=== PATIENT | female | born 1990 ===

== ENCOUNTER 2016-10-19 15:50 | Inpatient (IN) ==
[2016-10-19] MEDS ORDERED: ONDANSETRON 4 MG/2 ML VIAL IV PRN ×2 (16:34→22:53)
[2016-10-19] MEDS ORDERED: LACTATED RINGERS 1,000 ML IV PRN (16:34)
[2016-10-19] MEDS ORDERED: AMPICILLIN INJ 2,000 MG in SODIUM CHLORIDE 0.9% 100 ML IV ONE (16:44)
[2016-10-19] MEDS ORDERED: ePHEDrine 50 MG/ML AMP IV PRN (16:52)
[2016-10-19] MEDS ORDERED: FAMOTIDINE 20 MG/2 ML VIAL IV PRN (16:52)
[2016-10-19] MEDS ORDERED: PROMETHAZINE 25 MG/1 ML VIAL IM ONE (16:52)
[2016-10-19] MEDS ORDERED: diphenhydrAMINE 50 MG/1 ML VIAL IV PRN (16:52)
[2016-10-19] MEDS ORDERED: CITRIC ACID/SODIUM CITRATE 30 ML UDCUP PO PRN (16:52)
[2016-10-19 16:53] LABS: Basophils % 0.3 % (0.0-0.8); Eosinophils % 0.6 % (0.00-10.9); Hematocrit 32.5 VOL% (35.7-47.0); Hemoglobin 10.8 GM/DL (12.0-16.0); Immature Granulocytes % 0.9 %; Immature Granulocytes Absolute 0.06 #; Lymphocytes # 1.1 10*3/uL (1.4-4.0); Lymphocytes % 16.5 % (21.3-54.2); Mean Corpuscular HGB Conc 33.2 GM/DL (32-36); Mean Corpuscular Hemoglobin 28 PG (27-34); Mean Corpuscular Volume 84.6 FL (87-102); Monocytes # 0.4 10*3/uL (0.11-0.8); Monocytes % 5.5 % (1.7-12.7); Neutrophils % 76.2 % (38.7-73.9); Platelet Count 222 T/CUMM (130-400); Red Blood Count 3.84 MC/CUMM (3.8-5.5); Red Cell Distribution Width 15.1 % (9.3-17.3); White Blood Count 6.5 T/CUMM (4-12)
[2016-10-19] MEDS ORDERED: OXYTOCIN/LR 20 UNIT/1,000 ML BAG IV SCH (17:00)
[2016-10-19] MEDS ORDERED: LACTATED RINGERS 1,000 ML IV SCH (17:00)
[2016-10-19] MEDS ORDERED: fentaNYL 2 MCG/ROPIV 0.2% EPID 150 ML EPIDURAL ONE (17:14)
[2016-10-19 17:19] LABS: Albumin 2.8 G/DL (3.4-5.0); Bilirubin,Total 1.1 MG/DL (0.2-1.0); Calcium 8.7 MG/DL (8.5-10.1); Osmolality,Calculated 274.7 MOS/KG (273-304); Uric Acid 3.8 MG/DL (2.6-6.0)
[2016-10-19] MEDS ORDERED: fentaNYL 2 MCG/ROPIV 0.2% EPID 150 ML EPIDURAL SCH (18:24)
[2016-10-19 19:32] LABS: HIV Antigen/Antibody Result Nonreactive (Nonreactive); Hepatitis B Surface Ag Quant < 0.10 Index; Hepatitis B Surface Ag Result Negative (Negative); Rubella Antibody IgG 18.7 IU/ML
--- NOTE | 2016-10-19 20:03 | OB/GYN History & Physical ---
History of Present Illness Chief complaint: The patient presented to the office for routine exam. She was in labor. History of present illness: Ms. Valdes is a 25 year old female presented to the office for routine exam. Upon examination she was found to be 6 cm dilated and was sent to the labor department for evaluation. Her GENARO is 11/02/2016 for an estimated gestational age of 38 weeks. The patient will be admitted for augmentation of labor. The risk and benefits of been thoroughly discussed with this patient and significant other, plan of care has been discussed with Dr. Haq and all parties are in agreement plan. The patient received her care through the [facility] in the [facility] and she received routine care and her course was uneventful. labs: Unavailable at time of dictation. The patient has had 3 previous vaginal deliveries and the largest infant weighed 8 pounds and 6 ounces and she reported no complications with any of her pregnancies. Home Medications Medication Instructions Recorded Confirmed Type Multivitamin () [ 1 tablet PO DAILY 11/07/15 10/19/16 History Vitamin] Allergies Allergy/AdvReac Type Severity Reaction Status Date / Time No Known Allergies Allergy Verified 08/04/14 22:24 12 point system: reviewed and no additional remarkable complaints except as stated Medical,Surgical,& Family Hx - Medical History Medical History: noncontributory Reproductive: History of: Sexually Transmitted Disorders (hx of chlamydia and trichamonis in jan 2014) No history of: Ectopic , Complication - Surgical History Abdominal Surgeries: Patient denies: Abdominal Surgery Reproductive Surgeries: Patient denies;: Section - Family History Family History: Reports;: Family Diabetes (paternal GM), Family Hypertension ( paternal GM), Family Stroke (paternal GM) Denies;: Family Anesthesia Reaction, Family Cancer, Family Heart Disease, Family Psychiatric Problems - Social History Smoking Status: Current every day smoker Marital Status: Single Lives With:: Significant Other Exam SPANISH TUTOR - Constitutional Vitals: Vital Signs Temp Pulse Resp BP 10/19/16 16:36 96.3 F L 82 20 123/66 General appearance: mild distress - Antepartum / Post Antepartum Exam Cervix - Dilatation: 7 CM Effacement: 80% Station: -1 Rupture: Intact Presentation: Vertex Heart Rate: 130s Breast: bilateral: normal Abdomen obstetrics: Present: bowel sounds normal Vagina: Present: normal moisture Uterus exam: Present: enlarged - Respiratory Respiratory exam: Present: clear to auscultation bilaterally - Cardiovascular Cardiovascular exam: Present: regular rate and rhythm - GI/Abdominal GI/Abdominal exam: Present: normal bowel sounds, soft - Extremities Exam Extremities exam: Present: normal inspection - Neurological Exam Neurological exam: Present: alert, oriented X3 - Psychiatric Psychiatric exam: Present: normal affect, normal mood - Skin Skin exam: Present: normal color, warm Assessment and Plan (1) 38 weeks gestation of Status: Acute Assessment and plan: Admit IV fluids IV Pitocin per protocol Artificial rupture membranes when appropriate Internal monitors if indicated Epidural anesthesia if desired Anticipate Current Visit: Yes (2) Active labor Status: Acute Assessment and plan: Same as above. Current Visit: Yes Results - Labs CBC & BMP: 10/19/16 16:42 10/19/16 16:42 Quality Measures - VTE Contraindication to Pharmacological VTE Prophylaxis: High Risk of Bleeding
--- NOTE | 2016-10-19 20:20 | Event Note ---
HPI: Ms. Valdes presented to the labor department in active labor. In light of these findings patient was admitted for management of her labor. The risk and benefits were thoroughly discussed this patient significant other, plan of care was discussed with Dr. Haq and all parties were in agreement plan. Stage I: The patient was admitted she received IV fluids and IV Pitocin per protocol. Artificial rupture membranes was performed with clear fluid noted. The patient progressed in labor with a CAT 1 tracing. She received an epidural for pain control. She had an uneventful course of labor. Stage II: The patient was complete and was instructed to push. She pushed for approximately 5 minutes after which time the 's head was delivered. Mouth and nose were suctioned on perineum. The remainder the infant was delivered at 1951 a viable female infant was noted. Apgars were 9 at 1 minute and 9 at 5 minutes. weight was 7 pounds and 12 ounces. A cord pH was obtained and sent to the lab. The was placed on the mom's abdomen for skin to skin bonding. Stage III: A spontaneous delivery of a Humphrey placenta with three-vessel cord noted. The placenta was further examined. Grossly intact. The vagina cervix was inspected with no tears or lacerations noted. Estimated blood loss is approximately 150 cc. At the time of dictation mother and baby are both in stable condition.
[2016-10-19] MEDS ORDERED: ACETAMINOPHEN/CODEINE 300-30 MG TABLET PO PRN (20:22)
[2016-10-19 20:40] LABS: Apearance,Urine CLEAR (Clear); Bacteria,Urine Occasional /HPF (Few); Bilirubin,Urine Negative (Negative); Blood, Urine Negative (Negative); Glucose,Urine (UA) Negative (Negative); Ketones,Urine 5 mg/dL (Negative); Mucus,Urine Occasional /LPF (Occasional); Nitrite,Urine Negative (Negative); Protein,Urine Negative; RBC,Urine 14 /HPF (0-4); Renal Epithelial Cells,Urine Occasional /HPF (<1); Squamous Epithelial Cell,Urine Occasional /HPF (0-10); Urine Color Yellow (Yellow); Urine Specific Gravity 1.021 (1.001-1.035); WBC,Urine 1 /HPF (0-6)
[2016-10-19] MEDS ORDERED: CARBOPROST TROMETHAMINE 250 MCG/ML AMP IM ONE (21:54)
[2016-10-19] MEDS ORDERED: BISACODYL 10 MG SUPP RECTAL PRN (22:51)
[2016-10-19] MEDS ORDERED: ACETAMINOPHEN 325 MG TABLET PO PRN (22:51)
[2016-10-19] MEDS ORDERED: LANOLIN 50% CREAM 0.3 OZ TUBE TOP PRN (22:51)
[2016-10-19] MEDS ORDERED: BENZOCAINE 20%/MENTHOL 0.5% SPRAY 56 GM CAN TOP PRN (22:51)
[2016-10-19] MEDS ORDERED: RHO(D) IMMUNE GLOBULIN 300 MCG SYRINGE IM ONE (22:51)
[2016-10-19] MEDS ORDERED: WITCH HAZEL PADS 100/JAR TOP PRN (22:51)
[2016-10-19] MEDS ORDERED: MEASLES/MUMPS/RUBELLA VACCINE 0.5 ML VIAL SUBCUT ONE (22:51)
[2016-10-19] MEDS ORDERED: IBUPROFEN 800 MG TABLET PO PRN (22:51)
[2016-10-19] MEDS ORDERED: DIPH/TET/ACEL PERT BOOSTER VACCINE 0.5 ML VIAL IM ONE (22:51)
[2016-10-19] MEDS ORDERED: HYDROCORTISONE 2.5% RECTAL CREAM 30 GM TUBE TOP PRN (22:51)
[2016-10-19] MEDS ORDERED: oxyCODONE/ACETAMINOPHEN 5-325 MG TABLET PO PRN ×2 (22:51)
[2016-10-19] MEDS ORDERED: ONDANSETRON 4 MG/2 ML VIAL ONE (22:54)
[2016-10-19] MEDS: DOCUSATE SODIUM 100 MG CAPSULE PO SCH (23:04)
[2016-10-19] MEDS ORDERED: OXYTOCIN/LR 20 UNIT/1,000 ML BAG IV ONE (23:33)
[2016-10-20] MEDS ORDERED: MEPERIDINE 25 MG/1 ML VIAL IV PRN (00:26)
[2016-10-20] MEDS ORDERED: PROMETHAZINE 25 MG/1 ML VIAL IM PRN (00:26)
[2016-10-20] MEDS ORDERED: MEPERIDINE 25 MG/1 ML VIAL ONE (00:28)
[2016-10-20] MEDS ORDERED: PROMETHAZINE 25 MG/1 ML VIAL ONE (00:29)
[2016-10-20 05:58] LABS: Basophils % 0.1 % (0.0-0.8); Hemoglobin 9.6 GM/DL (12.0-16.0); Immature Granulocytes % 0.8 %; Immature Granulocytes Absolute 0.09 #; Lymphocytes % 8.2 % (21.3-54.2); Mean Corpuscular HGB Conc 33.1 GM/DL (32-36); Mean Corpuscular Hemoglobin 28 PG (27-34); Mean Corpuscular Volume 85.5 FL (87-102); Mean Platelet Volume 11.4 FL (9.6-12.0); Monocytes # 0.3 10*3/uL (0.11-0.8); Monocytes % 2.7 % (1.7-12.7); Neutrophils # 10.2 10*3/uL (1.4-7.4); Neutrophils % 88.2 % (38.7-73.9); Platelet Count 193 T/CUMM (130-400); Red Blood Count 3.39 MC/CUMM (3.8-5.5); Red Cell Distribution Width 15.1 % (9.3-17.3); White Blood Count 11.5 T/CUMM (4-12)
--- NOTE | 2016-10-20 08:08 | OB/GYN Progress Note ---
Assessment and Plan (1) 38 weeks gestation of Status: Acute Assessment and plan: Admit IV fluids IV Pitocin per protocol Artificial rupture membranes when appropriate Internal monitors if indicated Epidural anesthesia if desired Anticipate Current Visit: Yes (2) Active labor Status: Acute Assessment and plan: Same as above. Current Visit: Yes (3) Vaginal delivery Status: Acute Assessment and plan: Initiate routine orders. 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 Bonding well with infant. Exam YARD ATTENDANT - Constitutional Vitals: Vital Signs Temp Pulse Resp BP Pulse Ox 10/20/16 07:53 96.6 F L 75 18 114/56 96 10/20/16 04:15 98.7 F 75 16 134/79 96 10/20/16 02:45 18 10/20/16 01:45 97.5 F L 70 16 130/71 97 10/20/16 00:45 97.3 F L 73 18 120/72 96 10/19/16 23:45 97.2 F L 78 18 134/82 97 10/19/16 23:15 98.0 F 81 20 136/84 96 10/19/16 22:45 97.9 F 89 20 135/76 96 10/19/16 20:00 97.4 F L 69 20 110/56 99 10/19/16 16:36 96.3 F L 82 20 123/66 General appearance: no acute distress - Antepartum / Post Post Exam Breast: bilateral: normal Abdomen obstetrics: Present: bowel sounds normal Vagina: Present: normal moisture, discharge (Light lochia rubra) Uterus exam: Present: enlarged (Fundus firm and midline) Anus/Rectum: Present: normal perianal skin - Head Head exam: Present: normal inspection - Respiratory Respiratory exam: Present: clear to auscultation bilaterally - Cardiovascular Cardiovascular exam: Present: regular rate and rhythm - GI/Abdominal GI/Abdominal exam: Present: normal bowel sounds, soft - Extremities Exam Extremities exam: Present: normal inspection - Neurological Exam Neurological exam: Present: alert, oriented X3 - Psychiatric Psychiatric exam: Present: normal affect, normal mood - Skin Skin exam: Present: normal color, warm Results - Labs CBC & BMP: 10/20/16 04:56 10/19/16 16:42
--- NOTE | 2016-10-20 08:20 | Anesthesia Post-Op ---
Anesthesia Post OP - Post Ansesthetic Evaluation Patient seen in post op: Yes Resp: within normal limits CV: within normal limits Mental: within normal limits Temp: within normal limits [id number]: within normal limits Nausea and Vomiting: within normal limits Pain: within normal limits
[2016-10-20] MEDS: FERROUS SULFATE 325 MG TABLET PO SCH ×2 (08:55→20:54)
[2016-10-20] MEDS: DOCUSATE SODIUM 100 MG CAPSULE PO SCH ×2 (09:06→20:55)
[2016-10-21 07:22] VITALS: BP 109/51
[2016-10-21] MEDS: FERROUS SULFATE 325 MG TABLET PO SCH (09:29)
[2016-10-21] MEDS: DOCUSATE SODIUM 100 MG CAPSULE PO SCH (09:35)
--- NOTE | 2016-10-21 10:04 | Discharge Summary ---
Hospital Course - Hospital Course Hospital Course: Patient presented for elective induction of labor due to term . She subsequently delivered a viable infant with no complications. She has followed a normal course and she has done well. Her bleeding is minimal with no odor. Her vital signs and lab values are stable. She is bonding well with her infant. She is voiding without difficulty. Her bowel sounds are present and she has had a normal bowel movement. Contraception options have been discussed with this patient and she desires the Nexplanon and will have that inserted at her visit. She will be discharged home prescriptions for pain and a follow-up appointment in our office. Diagnosis - Discharge Diagnosis (1) 38 weeks gestation of Status: Acute (2) Active labor Status: Acute (3) Vaginal delivery Status: Acute Specialty Discharge - Follow Up or Referrals Follow up with: Jahaira Haq MD [Physician] - (Follow-up in 6 weeks) Discharge Plan - Discharge Data Disposition: Disch To Home/Self Care Condition at Discharge: Stable Discharge Diet: advance to your usual diet Activity: resume usual activities as tolerated Hygiene: no restrictions Weight Bearing at Discharge: weight bear as tolerated Driving: no restrictions Contact your physician if you experience:: fever over 101, pain uncontrolled by pain medications - Discharge Medications New Ibuprofen Tab [Motrin Tab] 800 mg PO Q6H PRN #30 tablet PRN Reason: Pain Moderate (4-7) Acetamin/Codeine 300-30 Tab [Tylenol/Codeine #3] 2 tablet PO Q4H PRN #30 tablet PRN Reason: Pain Mild (1-3) Ferrous Sulfate Tab [Feosol Original Tab] 325 mg PO BID #60 tablet No Action Multivitamin () [ Vitamin] 1 tablet PO DAILY - Follow Up or Referral Follow Up: Jahaira Haq MD [Physician] - - Forms/Instructions Instructions: Ibuprofen (By mouth), Vaginal Delivery (DC), Bleeding (DC) Exam - Constitutional Vitals: Period Temp Pulse Resp BP Sys/Pires Pulse Ox Last 24 Hr 97 F-98.3 F 67-79 16-20 100-129/51-78 96-100 General appearance: no acute distress - Head Head exam: Present: normal inspection - Respiratory Respiratory exam: Present: clear to auscultation bilaterally - Cardiovascular Cardiovascular exam: Present: regular rate and rhythm - GI/Abdominal GI/Abdominal exam: Present: normal bowel sounds, soft - Extremities Exam Extremities exam: Present: normal inspection - Back Exam Back exam: Present: normal inspection - Neurological Exam Neurological exam: Present: alert, normal gait - Psychiatric Psychiatric exam: Present: normal affect, normal mood - Skin Skin exam: Present: normal color, warm DS: Provider Date of admission: 10/19/16 16:34 Primary care physician: Polly Champagne MD Attending physician on admission: Jahaira Haq MD Consults: 10/19/16 16:34 Consult to Anesthesiology [CONS] Routine Consulting Provider: Reason for Anesthesiology: Epidural Consult Comment: Epidural for pain managment 10/19/16 22:51 Consult to Test Consultant [CONS] Routine Consult Test Consultant: Breast Feeding Discharging clinician: Angela Carson CNM Expected date of discharge: 10/21/16
== END 2016-10-21 12:10 | disposition home or self-care (01) | DRG 560 ==
LOC: N.LDOUT 15:50 → N.LD 15:53 → N.OB 22:51
PROVIDERS: ADMIT Obstetrics & Gynecology; ATTEND Obstetrics & Gynecology

== ENCOUNTER 2017-10-25 02:36 | Inpatient (IN) ==
[2017-10-25] MEDS ORDERED: ONDANSETRON 4 MG/2 ML VIAL IV PRN (02:45)
[2017-10-25] MEDS ORDERED: MEPERIDINE 50 MG/1 ML VIAL IV PRN (02:45)
[2017-10-25] MEDS ORDERED: OXYTOCIN/LR 20 UNIT/1,000 ML BAG IV SCH ×2 (03:00→06:30)
[2017-10-25] MEDS ORDERED: LACTATED RINGERS 1,000 ML IV SCH (03:00)
[2017-10-25 03:12] LABS: Basophils % 0.2 % (0.0-0.8); Eosinophils # 0.1 10*3/uL (0.0-0.87); Eosinophils % 0.9 % (0.00-10.9); Hematocrit 34.8 VOL% (35.7-47.0); Hemoglobin 11.6 GM/DL (12.0-16.0); Immature Granulocytes % 0.7 %; Immature Granulocytes Absolute 0.06 #; Lymphocytes # 1.6 10*3/uL (1.4-4.0); Lymphocytes % 19.1 % (21.3-54.2); Mean Corpuscular HGB Conc 33.3 GM/DL (32-36); Mean Corpuscular Hemoglobin 30 PG (27-34); Mean Corpuscular Volume 89.7 FL (87-102); Mean Platelet Volume 10.8 FL (9.6-12.0); Monocytes # 0.5 10*3/uL (0.11-0.8); Monocytes % 5.7 % (1.7-12.7); Neutrophils # 6.3 10*3/uL (1.4-7.4); Neutrophils % 73.4 % (38.7-73.9); Platelet Count 213 T/CUMM (130-400); Red Blood Count 3.88 MC/CUMM (3.8-5.5); White Blood Count 8.5 T/CUMM (4-12)
[2017-10-25 03:28] LABS: Albumin 3.1 G/DL (3.4-5.0); Bilirubin,Total 0.4 MG/DL (0.2-1.0); Calcium 8.5 MG/DL (8.5-10.1); Osmolality,Calculated 273.7 MOS/KG (273-304); Potassium 4.1 MMOL/L (3.5-5.1); Total Protein 7.2 G/DL (6.4-8.3)
[2017-10-25] MEDS ORDERED: PROMETHAZINE 25 MG/1 ML VIAL IM ONE (09:46)
[2017-10-25] MEDS ORDERED: ePHEDrine 50 MG/ML AMP IV PRN ×2 (09:46)
[2017-10-25] MEDS ORDERED: CITRIC ACID/SODIUM CITRATE 30 ML UDCUP PO ONE (09:46)
[2017-10-25] MEDS ORDERED: hydrOXYzine HCL 25 MG/1 ML VIAL IM PRN (09:46)
[2017-10-25] MEDS ORDERED: diphenhydrAMINE 50 MG/1 ML VIAL IV PRN ×2 (09:46)
[2017-10-25] MEDS ORDERED: FAMOTIDINE 20 MG/2 ML VIAL IV ONE (09:46)
[2017-10-25] MEDS ORDERED: fentaNYL 2 MCG/ROPIV 0.2% EPID 150 ML EPIDURAL SCH (10:00)
[2017-10-25] MEDS ORDERED: miSOPROStol 200 MCG TABLET ONE (12:04)
[2017-10-25] MEDS ORDERED: METHYLERGONOVINE 0.2 MG/1 ML AMP ONE (12:05)
[2017-10-25 13:24] LABS: Cord Venous Blood HCO3 21.4 MMOL/L; Cord Venous Blood PCO2 43.7 MMHG; Cord Venous Blood PO2 28.1
[2017-10-25 13:27] LABS: Cord Arterial Blood HCO3 19.2 MMOL/L
[2017-10-25] MEDS ORDERED: OXYTOCIN/LR 20 UNIT/1,000 ML BAG IV ONE ×2 (15:01→15:51)
[2017-10-25] MEDS ORDERED: RHO(D) IMMUNE GLOBULIN 300 MCG SYRINGE IM ONE (15:51)
[2017-10-25] MEDS ORDERED: DIPH/TET/ACEL PERT BOOSTER VACCINE 0.5 ML VIAL IM ONE (15:51)
[2017-10-25] MEDS ORDERED: WITCH HAZEL PADS 100/JAR TOP PRN (15:51)
[2017-10-25] MEDS ORDERED: BENZOCAINE 20%/MENTHOL 0.5% SPRAY 56 GM CAN TOP PRN (15:51)
[2017-10-25] MEDS ORDERED: ACETAMINOPHEN 325 MG TABLET PO PRN (15:51)
[2017-10-25] MEDS ORDERED: BISACODYL 10 MG SUPP RECTAL PRN (15:51)
[2017-10-25] MEDS ORDERED: oxyCODONE/ACETAMINOPHEN 5-325 MG TABLET PO PRN ×2 (15:51)
[2017-10-25] MEDS ORDERED: LANOLIN 50% CREAM 0.3 OZ TUBE TOP PRN (15:51)
[2017-10-25] MEDS ORDERED: HYDROCORTISONE 2.5% RECTAL CREAM 30 GM TUBE TOP PRN (15:51)
[2017-10-25] MEDS ORDERED: MEASLES/MUMPS/RUBELLA VACCINE 0.5 ML VIAL SUBCUT ONE (15:51)
[2017-10-25] MEDS ORDERED: ACETAMINOPHEN/CODEINE 300-30 MG TABLET PO PRN (15:51)
[2017-10-25] MEDS ORDERED: IBUPROFEN 800 MG TABLET PO PRN (15:51)
[2017-10-25] MEDS: DOCUSATE SODIUM 100 MG CAPSULE PO SCH (20:39)
[2017-10-26 05:35] LABS: Basophils % 0.3 % (0.0-0.8); Eosinophils # 0.1 10*3/uL (0.0-0.87); Eosinophils % 1.3 % (0.00-10.9); Hematocrit 30.4 VOL% (35.7-47.0); Immature Granulocytes % 0.4 %; Immature Granulocytes Absolute 0.03 #; Lymphocytes # 1.6 10*3/uL (1.4-4.0); Lymphocytes % 23.1 % (21.3-54.2); Mean Corpuscular HGB Conc 32.9 GM/DL (32-36); Mean Corpuscular Hemoglobin 30 PG (27-34); Mean Platelet Volume 11.2 FL (9.6-12.0); Monocytes # 0.4 10*3/uL (0.11-0.8); Monocytes % 5.4 % (1.7-12.7); Neutrophils # 4.7 10*3/uL (1.4-7.4); Neutrophils % 69.5 % (38.7-73.9); Platelet Count 156 T/CUMM (130-400); Red Blood Count 3.34 MC/CUMM (3.8-5.5); Red Cell Distribution Width 14.8 % (9.3-17.3); White Blood Count 6.8 T/CUMM (4-12)
[2017-10-26] MEDS: DOCUSATE SODIUM 100 MG CAPSULE PO SCH ×2 (09:18→21:03)
[2017-10-27 08:27] VITALS: BP 117/67
[2017-10-27] MEDS: DOCUSATE SODIUM 100 MG CAPSULE PO SCH (09:02)
== END 2017-10-27 12:30 | disposition home or self-care (01) | DRG 560 ==
LOC: N.LDOUT 02:36 → N.LD 02:38 → N.OB 15:39
PROVIDERS: ADMIT Obstetrics & Gynecology; ATTEND Obstetrics & Gynecology

== ENCOUNTER 2019-06-10 22:38 | Inpatient (IN) ==
[2019-06-10] MEDS ORDERED: ONDANSETRON 4 MG/2 ML VIAL IV PRN (22:47)
[2019-06-10 23:16] LABS: Basophils % 0.3 % (0.0-0.8); Eosinophils % 0.4 % (0.00-10.9); Hematocrit 37.8 VOL% (35.7-47.0); Hemoglobin 12.2 GM/DL (12.0-16.0); Immature Granulocytes % 1.6 %; Immature Granulocytes Absolute 0.13 #; Lymphocytes # 1.3 10*3/uL (1.4-4.0); Mean Corpuscular HGB Conc 32.3 GM/DL (32-36); Mean Corpuscular Volume 92.6 FL (87-102); Mean Platelet Volume 10.1 FL (9.6-12.0); Monocytes % 2.9 % (1.7-12.7); Neutrophils % 77.8 % (38.7-73.9); Platelet Count 247 T/CUMM (130-400); Red Blood Count 4.08 MC/CUMM (3.8-5.5); Red Cell Distribution Width 14.7 % (9.3-17.3); White Blood Count 7.9 T/CUMM (4-12)
[2019-06-10] MEDS ORDERED: AMPICILLIN INJ 2,000 MG in SODIUM CHLORIDE 0.9% 100 ML IV ONE (23:29)
[2019-06-10 23:36] LABS: Alanine Aminotransferase 23 U/L (13-56); Albumin 3.1 G/DL (3.4-5.0); Alkaline Phosphatase 188 U/L (45-117); Aspartate Amino Transferase 23 U/L (0-37); Bilirubin,Total < 0.39 MG/DL (0.2-1.0); Blood Urea Nitrogen 3 MG/DL (7-18); Calcium 8.9 MG/DL (8.5-10.1); Estimated Glom Filtration Rate 158 ML/MIN; Glucose 110 MG/DL (74-106); Total Protein 8.1 G/DL (6.4-8.3)
[2019-06-11] MEDS: LACTATED RINGERS 1,000 ML IV SCH ×2 (00:03→08:46)
[2019-06-11] MEDS ORDERED: ACETAMINOPHEN 500 MG TABLET PO ONE (00:59)
[2019-06-11] MEDS ORDERED: MEPERIDINE 50 MG/1 ML VIAL IV PRN (01:13)
[2019-06-11] MEDS ORDERED: OXYTOCIN/LR 20 UNIT/1,000 ML BAG IV SCH (03:00)
[2019-06-11] MEDS: BUTORPHANOL 2 MG/ML VIAL IV PRN ×2 (05:57→08:57)
[2019-06-11] MEDS ORDERED: miSOPROStoL 200 MCG TABLET ONE (09:54)
[2019-06-11] MEDS ORDERED: CARBOPROST TROMETHAMINE 250 MCG/ML AMP IM ONE (09:55)
[2019-06-11] MEDS ORDERED: TRANEXAMIC ACID 1,000 MG/10 ML VIAL ONE (09:55)
[2019-06-11] MEDS ORDERED: METHYLERGONOVINE 0.2 MG/1 ML AMP ONE (09:55)
[2019-06-11] MEDS ORDERED: OXYTOCIN/LR 30 UNIT/1,000 ML BAG IV ONE (10:17)
[2019-06-11] MEDS ORDERED: OXYTOCIN 10 UNIT/ML VIAL ONE (10:18)
[2019-06-11] MEDS ORDERED: OXYTOCIN 10 UNIT/ML VIAL IM ONE (10:34)
[2019-06-11] MEDS ORDERED: ONDANSETRON 4 MG/2 ML VIAL IV PRN (10:43)
[2019-06-11] MEDS ORDERED: BISACODYL 10 MG SUPP RECTAL PRN (10:43)
[2019-06-11] MEDS ORDERED: RHO(D) IMMUNE GLOBULIN 300 MCG SYRINGE IM ONE (10:43)
[2019-06-11] MEDS ORDERED: WITCH HAZEL PADS 100/JAR TOP PRN (10:43)
[2019-06-11] MEDS ORDERED: oxyCODONE/ACETAMINOPHEN 5-325 MG TABLET PO PRN ×2 (10:43)
[2019-06-11] MEDS ORDERED: DIPH/TET/ACEL PERT BOOSTER VACCINE 0.5 ML VIAL IM ONE (10:43)
[2019-06-11] MEDS ORDERED: HYDROCORTISONE 2.5% RECTAL CREAM 30 GM TUBE TOP PRN (10:43)
[2019-06-11] MEDS ORDERED: MEASLES/MUMPS/RUBELLA VACCINE 0.5 ML VIAL SUBCUT ONE (10:43)
[2019-06-11] MEDS ORDERED: BENZOCAINE 20%/MENTHOL 0.5% SPRAY 56 GM CAN TOP PRN (10:43)
[2019-06-11] MEDS ORDERED: LANOLIN 50% CREAM 0.3 OZ TUBE TOP PRN (10:43)
[2019-06-11] MEDS ORDERED: ACETAMINOPHEN 325 MG TABLET PO PRN (10:43)
[2019-06-11] MEDS ORDERED: OXYTOCIN/LR 20 UNIT/1,000 ML BAG IV ONE (10:43)
[2019-06-11] MEDS: IBUPROFEN 800 MG TABLET PO PRN (16:00)
[2019-06-11] MEDS: DOCUSATE SODIUM 100 MG CAPSULE PO SCH (21:19)
[2019-06-12 06:48] LABS: Basophils % 0.3 % (0.0-0.8); Eosinophils # 0.1 10*3/uL (0.0-0.87); Hematocrit 31.7 VOL% (35.7-47.0); Hemoglobin 9.9 GM/DL (12.0-16.0); Immature Granulocytes Absolute 0.11 #; Lymphocytes # 1.5 10*3/uL (1.4-4.0); Lymphocytes % 13.2 % (21.3-54.2); Mean Corpuscular HGB Conc 31.2 GM/DL (32-36); Mean Corpuscular Volume 94.9 FL (87-102); Mean Platelet Volume 10.8 FL (9.6-12.0); Monocytes % 4.2 % (1.7-12.7); Neutrophils % 80.3 % (38.7-73.9); Platelet Count 195 T/CUMM (130-400); Red Blood Count 3.34 MC/CUMM (3.8-5.5); Red Cell Distribution Width 15.1 % (9.3-17.3); White Blood Count 11.5 T/CUMM (4-12)
[2019-06-12] MEDS: IBUPROFEN 800 MG TABLET PO PRN (08:25)
[2019-06-12] MEDS: DOCUSATE SODIUM 100 MG CAPSULE PO SCH (08:25)
[2019-06-12 09:38] VITALS: BP 107/66
[2019-06-13] MEDS ORDERED: INFLUENZA VIRUS VACCINE 0.5 ML SYRINGE IM ONE (09:00)
== END 2019-06-12 13:35 | disposition home or self-care (01) | DRG 560 ==
LOC: N.LDOUT 22:38 → N.LD 22:39 → N.OB 06-11 13:38
PROVIDERS: ADMIT Obstetrics & Gynecology; ATTEND Obstetrics & Gynecology

== ENCOUNTER 2020-07-09 00:03 | Inpatient (IN) ==
[2020-07-09] MEDS ORDERED: ONDANSETRON 4 MG/2 ML VIAL IV PRN (01:14)
[2020-07-09] MEDS ORDERED: LACTATED RINGERS 1,000 ML IV SCH (01:30)
[2020-07-09 01:37] LABS: Basophils % 0.1 % (0.0-0.8); Eosinophils # 0.1 10*3/uL (0.0-0.87); Eosinophils % 0.9 % (0.00-10.9); Hematocrit 31.9 VOL% (35.7-47.0); Hemoglobin 10.6 GM/DL (12.0-16.0); Immature Granulocytes % 0.9 %; Immature Granulocytes Absolute 0.06 #; Lymphocytes # 1.3 10*3/uL (1.4-4.0); Lymphocytes % 18.7 % (21.3-54.2); Mean Corpuscular HGB Conc 33.2 GM/DL (32-36); Mean Corpuscular Volume 89.9 FL (87-102); Mean Platelet Volume 11.1 FL (9.6-12.0); Monocytes % 5.6 % (1.7-12.7); Neutrophils % 73.8 % (38.7-73.9); Platelet Count 201 T/CUMM (130-400); Red Blood Count 3.55 MC/CUMM (3.8-5.5); Red Cell Distribution Width 14.6 % (9.3-17.3); White Blood Count 6.7 T/CUMM (4-12)
[2020-07-09 01:58] LABS: Alanine Aminotransferase 15 U/L (13-56); Albumin 2.8 G/DL (3.4-5.0); Alkaline Phosphatase 232 U/L (45-117); Aspartate Amino Transferase 23 U/L (0-37); Bilirubin,Total < 0.39 MG/DL (0.2-1.0); Blood Urea Nitrogen 11 MG/DL (7-18); Carbon Dioxide 23 MMOL/L (21-32); Estimated Glom Filtration Rate 170 ML/MIN; Glucose 100 MG/DL (74-106); Osmolality,Calculated 268.1 MOS/KG (273-304); Potassium 3.7 MMOL/L (3.5-5.1); Sodium 135 MMOL/L (136-145); Total Protein 7.4 G/DL (6.4-8.2)
[2020-07-09 04:19] LABS: Bilirubin,Urine Small mg/dL (Negative); Blood, Urine Negative (Negative); Calcium Oxalate Crystals,Urine Many /HPF (Few); Glucose,Urine (UA) Negative (Negative); Ketones,Urine Negative (Negative); Mucus,Urine Many /LPF (Occasional); Nitrite,Urine Negative (Negative); Protein,Urine 100 MG/DL; Squamous Epithelial Cell,Urine Occasional /HPF (0-10); Urine Appearance Slightly Hazy (Clear); Urine Color Amber (Yellow); Urine Specific Gravity 1.035 (1.001-1.035); WBC,Urine 6 /HPF (0-6)
[2020-07-09 04:45] LABS: Barbiturates Screen,Urine Negative (Negative); Benzodiazepines Screen,Urine Negative (Negative); Cannabinoid Screen,Urine Negative (Negative); Opiate Screen,Urine Negative (Negative); Phencyclidine Screen,Urine Negative (Negative)
[2020-07-09] MEDS: MEPERIDINE 50 MG/1 ML VIAL IV PRN ×2 (05:20→10:36)
[2020-07-09] MEDS ORDERED: OXYTOCIN/LR 20 UNIT/1,000 ML BAG IV SCH (08:07)
[2020-07-09] MEDS ORDERED: miSOPROStoL 200 MCG TABLET ONE (09:13)
[2020-07-09] MEDS ORDERED: METHYLERGONOVINE 0.2 MG/1 ML AMP ONE (09:13)
[2020-07-09] MEDS ORDERED: CARBOPROST TROMETHAMINE 250 MCG/ML AMP IM ONE (09:13)
[2020-07-09] MEDS ORDERED: LIDOCAINE 1% 50 ML VIAL ONE (09:13)
[2020-07-09 13:49] LABS: Cord Arterial Blood HCO3 18.9 MMOL/L
[2020-07-09 13:51] LABS: Cord Venous Blood HCO3 23.5 MMOL/L; Cord Venous Blood PCO2 45.8 MMHG; Cord Venous Blood PO2 35.4 MMHG
[2020-07-09] MEDS ORDERED: IBUPROFEN 800 MG TABLET PO ONE (15:49)
[2020-07-09] MEDS ORDERED: OXYTOCIN/LR 20 UNIT/1,000 ML BAG IV ONE ×2 (16:43→17:14)
[2020-07-09] MEDS ORDERED: WITCH HAZEL PADS 100/JAR TOP PRN (17:14)
[2020-07-09] MEDS ORDERED: BISACODYL 10 MG SUPP RECTAL PRN (17:14)
[2020-07-09] MEDS ORDERED: ACETAMINOPHEN 325 MG TABLET PO PRN (17:14)
[2020-07-09] MEDS ORDERED: DIPH/TET/ACEL PERT BOOSTER VACCINE 0.5 ML VIAL IM ONE (17:14)
[2020-07-09] MEDS ORDERED: MEASLES/MUMPS/RUBELLA VACCINE 0.5 ML VIAL SUBCUT ONE (17:14)
[2020-07-09] MEDS ORDERED: HYDROCORTISONE 2.5% RECTAL CREAM 30 GM TUBE TOP PRN (17:14)
[2020-07-09] MEDS ORDERED: RHO(D) IMMUNE GLOBULIN 300 MCG SYRINGE IM ONE (17:14)
[2020-07-09] MEDS ORDERED: oxyCODONE/ACETAMINOPHEN 5-325 MG TABLET PO PRN ×2 (17:14)
[2020-07-09] MEDS ORDERED: LANOLIN 50% CREAM 0.3 OZ TUBE TOP PRN (17:14)
[2020-07-09] MEDS ORDERED: BENZOCAINE 20%/MENTHOL 0.5% SPRAY 56 GM CAN TOP PRN (17:14)
[2020-07-09] MEDS: DOCUSATE SODIUM 100 MG CAPSULE PO SCH (21:14)
[2020-07-10] MEDS: IBUPROFEN 800 MG TABLET PO PRN ×2 (04:28→13:47)
[2020-07-10 04:39] LABS: Basophils % 0.2 % (0.0-0.8); Eosinophils # 0.1 10*3/uL (0.0-0.87); Eosinophils % 0.9 % (0.00-10.9); Hematocrit 29.4 VOL% (35.7-47.0); Hemoglobin 9.2 GM/DL (12.0-16.0); Immature Granulocytes % 0.6 %; Immature Granulocytes Absolute 0.05 #; Lymphocytes # 1.6 10*3/uL (1.4-4.0); Lymphocytes % 19.4 % (21.3-54.2); Mean Corpuscular HGB Conc 31.3 GM/DL (32-36); Mean Corpuscular Volume 94.8 FL (87-102); Mean Platelet Volume 10.8 FL (9.6-12.0); Monocytes % 5.2 % (1.7-12.7); Neutrophils % 73.7 % (38.7-73.9); Platelet Count 186 T/CUMM (130-400); Red Cell Distribution Width 14.6 % (9.3-17.3); White Blood Count 8.1 T/CUMM (4-12)
[2020-07-10] MEDS: FERROUS SULFATE 325 MG TABLET PO SCH (08:38)
[2020-07-10] MEDS: DOCUSATE SODIUM 100 MG CAPSULE PO SCH ×2 (08:38→20:59)
[2020-07-11] MEDS: IBUPROFEN 800 MG TABLET PO PRN (03:51)
[2020-07-11] MEDS: FERROUS SULFATE 325 MG TABLET PO SCH (10:04)
[2020-07-11] MEDS: DOCUSATE SODIUM 100 MG CAPSULE PO SCH (10:04)
[2020-07-11 11:27] VITALS: BP 128/70
== END 2020-07-11 15:25 | disposition home or self-care (01) | DRG 560 ==
LOC: N.LDOUT 00:03 → N.LD 01:14 → N.OB 17:10
PROVIDERS: ADMIT Obstetrics & Gynecology; ATTEND Obstetrics & Gynecology

== ENCOUNTER 2021-11-12 06:45 | Inpatient (IN) ==
[2021-11-12] MEDS ORDERED: OXYTOCIN/LR 20 UNIT/1,000 ML BAG IV ONE ×3 (07:44→14:17)
[2021-11-12] MEDS ORDERED: miSOPROStoL 200 MCG TABLET RECTAL PRN (07:44)
[2021-11-12] MEDS ORDERED: ONDANSETRON 4 MG/2 ML VIAL IV PRN ×2 (07:44→14:17)
[2021-11-12] MEDS ORDERED: TRANEXAMIC ACID 1,000 MG in SODIUM CHLORIDE 0.9% 100 ML IV PRN (07:44)
[2021-11-12] MEDS ORDERED: CARBOPROST TROMETHAMINE 250 MCG/ML AMP IM PRN (07:44)
[2021-11-12] MEDS ORDERED: METHYLERGONOVINE 0.2 MG/1 ML AMP IM PRN (07:44)
[2021-11-12] MEDS ORDERED: OXYTOCIN/LR 20 UNIT/1,000 ML BAG IV SCH (08:00)
[2021-11-12] MEDS ORDERED: LACTATED RINGERS 1,000 ML IV SCH ×2 (08:00→14:30)
[2021-11-12 08:08] LABS: Basophils % 0.3 % (0.0-0.8); Eosinophils # 0.1 10*3/uL (0.0-0.87); Eosinophils % 1.4 % (0.00-10.9); Hematocrit 32.4 VOL% (35.7-47.0); Hemoglobin 10.5 GM/DL (12.0-16.0); Immature Granulocytes % 1.3 %; Immature Granulocytes Absolute 0.09 #; Lymphocytes # 1.3 10*3/uL (1.4-4.0); Lymphocytes % 18.5 % (21.3-54.2); Mean Corpuscular HGB Conc 32.4 GM/DL (32-36); Mean Platelet Volume 11.1 FL (9.6-12.0); Monocytes # 0.3 10*3/uL (0.11-0.8); Monocytes % 4.4 % (1.7-12.7); Neutrophils % 74.1 % (38.7-73.9); Platelet Count 238 T/CUMM (130-400); Red Blood Count 3.64 MC/CUMM (3.8-5.5); Red Cell Distribution Width 14.9 % (9.3-17.3); White Blood Count 7.1 T/CUMM (4-12)
[2021-11-12 08:25] LABS: Alanine Aminotransferase 9 U/L (13-56); Albumin 2.4 G/DL (3.4-5.0); Alkaline Phosphatase 234 U/L (45-117); Aspartate Amino Transferase 16 U/L (0-37); Bilirubin,Total < 0.39 MG/DL (0.20-1.00); Blood Urea Nitrogen 9 MG/DL (7-18); Calcium 9.4 MG/DL (8.5-10.1); Carbon Dioxide 25 MMOL/L (21-32); Chloride 107 MMOL/L (98-107); Glucose 81 MG/DL (74-106); Potassium 4.2 MMOL/L (3.5-5.1); Sodium 136 MMOL/L (136-145); Total Protein 6.9 G/DL (6.4-8.2)
[2021-11-12] MEDS ORDERED: SODIUM CHLORIDE 0.9% 0 ML IV ONE (09:23)
[2021-11-12] MEDS ORDERED: TRANEXAMIC ACID 1,000 MG/10 ML VIAL ONE (09:23)
[2021-11-12] MEDS ORDERED: miSOPROStoL 200 MCG TABLET ONE (09:23)
[2021-11-12] MEDS ORDERED: CARBOPROST TROMETHAMINE 250 MCG/ML AMP IM ONE (09:24)
[2021-11-12] MEDS ORDERED: METHYLERGONOVINE 0.2 MG/1 ML AMP ONE (09:24)
[2021-11-12] MEDS ORDERED: hydrOXYzine HCL 25 MG/1 ML VIAL IM PRN (09:40)
[2021-11-12] MEDS ORDERED: diphenhydrAMINE 50 MG/1 ML VIAL IV PRN ×2 (09:40)
[2021-11-12] MEDS ORDERED: ePHEDrine 50 MG/ML VIAL IV PRN (09:40)
[2021-11-12] MEDS ORDERED: NALOXONE 0.4 MG/ML VIAL IV PRN (09:40)
[2021-11-12] MEDS ORDERED: CITRIC ACID/SODIUM CITRATE 30 ML UDCUP PO ONE (09:40)
[2021-11-12] MEDS ORDERED: FAMOTIDINE 20 MG/2 ML VIAL IV ONE (09:40)
[2021-11-12] MEDS ORDERED: PROMETHAZINE 25 MG/1 ML VIAL IM ONE (09:40)
[2021-11-12] MEDS ORDERED: fentaNYL 2 MCG/ROPIV 0.2% EPID 100 ML EPIDURAL SCH (10:00)
[2021-11-12 11:23] LABS: Mucus,Urine Occasional /LPF (Occasional); RBC,Urine 1 /HPF (0-4); Squamous Epithelial Cell,Urine Occasional /HPF (0-10)
[2021-11-12 11:24] LABS: Bilirubin,Urine Negative (Negative); Blood, Urine Negative (Negative); Glucose,Urine (UA) Negative (Negative); Ketones,Urine Negative (Negative); Nitrite,Urine Negative (Negative); Protein,Urine Negative (Negative); Urine Appearance Clear (Clear); Urine Color Light Yellow (Yellow); Urine Urobilinogen 0.2 eU/dL (<2.0)
[2021-11-12] MEDS ORDERED: fentaNYL 100 MCG/2 ML VIAL ONE (12:08)
[2021-11-12] MEDS ORDERED: ceFAZolin 3,000 MG in SYRINGE 1 EACH IV ONE (12:50)
[2021-11-12] MEDS ORDERED: OXYTOCIN 10 UNIT/ML VIAL IM ONE (12:51)
[2021-11-12] MEDS ORDERED: OXYTOCIN/LR 30 UNIT/1,000 ML BAG IV ONE ×2 (12:51→16:09)
[2021-11-12] MEDS ORDERED: SUCCINYLCHOLINE 200 MG/10 ML VIAL ONE (12:59)
[2021-11-12] MEDS ORDERED: propofoL 200 MG/20 ML VIAL IV ONE (12:59)
[2021-11-12] MEDS ORDERED: ONDANSETRON 4 MG/2 ML VIAL ONE (13:02)
[2021-11-12] MEDS ORDERED: buprenorphine HCL 0.3 MG/ML VIAL ONE (13:13)
[2021-11-12] MEDS ORDERED: PHENYLEPHRINE 1 MG/10 ML SYRINGE IV ONE ×3 (13:21→14:11)
[2021-11-12] MEDS ORDERED: ACETAMINOPHEN INJ 1,000 MG/100 ML VIAL IV ONE (13:30)
[2021-11-12] MEDS ORDERED: KETOROLAC 30 MG/1 ML VIAL ONE (13:30)
[2021-11-12] MEDS ORDERED: SODIUM CHLORIDE 0.9% 1,000 ML IV PRN (13:43)
[2021-11-12 13:52] LABS: Cord Arterial Blood HCO3 20.8 MMOL/L
[2021-11-12 13:55] LABS: Cord Venous Blood HCO3 21.8 MMOL/L; Cord Venous Blood PCO2 49.1 MMHG; Cord Venous Blood PO2 32.3
[2021-11-12] MEDS ORDERED: ACETAMINOPHEN 325 MG TABLET PO PRN (14:17)
[2021-11-12] MEDS ORDERED: RHO(D) IMMUNE GLOBULIN 300 MCG SYRINGE IM ONE (14:17)
[2021-11-12] MEDS ORDERED: SIMETHICONE CHEW 80 MG TABLET PO PRN (14:17)
[2021-11-12] MEDS ORDERED: MAGNESIUM HYDROXIDE SUSP 30 ML UDCUP PO PRN (14:17)
[2021-11-12 15:19] LABS: Basophils % 0.1 % (0.0-0.8); Eosinophils % 0.3 % (0.00-10.9); Hematocrit 26.7 VOL% (35.7-47.0); Hemoglobin 8.5 GM/DL (12.0-16.0); Immature Granulocytes Absolute 0.13 #; Lymphocytes # 0.9 10*3/uL (1.4-4.0); Lymphocytes % 6.7 % (21.3-54.2); Mean Corpuscular HGB Conc 31.8 GM/DL (32-36); Mean Corpuscular Volume 89.3 FL (87-102); Mean Platelet Volume 11.1 FL (9.6-12.0); Monocytes # 0.5 10*3/uL (0.11-0.8); Monocytes % 3.4 % (1.7-12.7); Neutrophils % 88.5 % (38.7-73.9); Platelet Count 159 T/CUMM (130-400); Red Blood Count 2.99 MC/CUMM (3.8-5.5); Red Cell Distribution Width 15.5 % (9.3-17.3); White Blood Count 13.5 T/CUMM (4-12)
[2021-11-12] MEDS ORDERED: ACETAMINOPHEN 500 MG TABLET PO PRN (19:30)
[2021-11-12] MEDS: DOCUSATE SODIUM 100 MG CAPSULE PO SCH (21:05)
[2021-11-12 21:57] LABS: Hematocrit 29.4 VOL% (35.7-47.0); Hemoglobin 9.7 GM/DL (12.0-16.0)
[2021-11-12] MEDS: IBUPROFEN 800 MG TABLET PO PRN (21:57)
[2021-11-13 06:02] LABS: Basophils % 0.1 % (0.0-0.8); Eosinophils % 0.3 % (0.00-10.9); Hematocrit 29.7 VOL% (35.7-47.0); Hemoglobin 9.3 GM/DL (12.0-16.0); Immature Granulocytes % 0.8 %; Immature Granulocytes Absolute 0.07 #; Lymphocytes # 1.5 10*3/uL (1.4-4.0); Lymphocytes % 17.4 % (21.3-54.2); Mean Corpuscular HGB Conc 31.3 GM/DL (32-36); Mean Corpuscular Volume 89.2 FL (87-102); Mean Platelet Volume 11.6 FL (9.6-12.0); Monocytes # 0.4 10*3/uL (0.11-0.8); Monocytes % 5.1 % (1.7-12.7); Neutrophils % 76.3 % (38.7-73.9); Platelet Count 162 T/CUMM (130-400); Red Blood Count 3.33 MC/CUMM (3.8-5.5); Red Cell Distribution Width 15.9 % (9.3-17.3); White Blood Count 8.6 T/CUMM (4-12)
[2021-11-13] MEDS: METOCLOPRAMIDE 10 MG TABLET PO SCH ×2 (09:01→17:38)
[2021-11-13] MEDS: MULTIVITAMIN (PRENATAL) TABLET PO SCH (09:02)
[2021-11-13] MEDS: DOCUSATE SODIUM 100 MG CAPSULE PO SCH ×2 (09:02→21:20)
[2021-11-13] MEDS: IBUPROFEN 800 MG TABLET PO PRN (16:13)
[2021-11-13] MEDS: FOLIC ACID 1 MG TABLET PO SCH (21:21)
[2021-11-14] MEDS: METOCLOPRAMIDE 10 MG TABLET PO SCH ×2 (01:00→08:49)
[2021-11-14] MEDS: IBUPROFEN 800 MG TABLET PO PRN (02:11)
[2021-11-14 08:41] VITALS: BP 119/66
[2021-11-14] MEDS: DOCUSATE SODIUM 100 MG CAPSULE PO SCH (08:49)
[2021-11-14] MEDS: MULTIVITAMIN (PRENATAL) TABLET PO SCH (08:49)
[2021-11-14] MEDS: FOLIC ACID 1 MG TABLET PO SCH (08:50)
== END 2021-11-14 12:43 | disposition home or self-care (01) | DRG 539 ==
LOC: N.LD 06:45 → N.OB 18:17
PROVIDERS: ADMIT Obstetrics & Gynecology; ATTEND Obstetrics & Gynecology